=== PATIENT | female | born 1990 | race African-American/Black ===

== ENCOUNTER 2017-05-01 10:45 | Emergency (ER) | payer SELFPAY ==
[~2017-05-01 10:45] MED LIST: ALBU0.63 NEB; ALBU8I INH; CEPH500C3 PO
[2017-05-01 10:47] VITALS: BP 150/83; PULSE 81; RESP 15; TEMP 98.2; O2SAT 99
--- NOTE | 2017-05-01 11:14 | PD ---
Physical Exam Time Seen by Provider: 11:13 Narrative 26yo F c/o Data Data Last Documented VS Vital Signs Date Time Temp Pulse Resp B/P (MAP) Pulse Ox O2 Delivery O2 Flow Rate FiO2 05/01/17 11:44 05/01/17 10:47 98.2 81 15 99 Orders Orders Prochlorperazine Inj (Compazine Inj) (05/01/17 11:30) Kathy Rodrigues May 01, 2017 11:14
--- NOTE | 2017-05-01 11:25 | PD ---
HPI . headache x 1 week on right side of head Chief Complaint: Headache Time Seen by Provider: 11:19 Travel History International Travel<30 days: No Contact w/Intl Traveler<30days: No Traveled to known affect area: No History of Present Illness HPI 26-year-old female here with complaints of right sided headache that she's had for about the past week. The headaches located around the right side of her for head and eyes. It feels like a pulling-type sensation. She's not had any visual changes. Denies any nausea or vomiting. Admits to life being stressful. Denies any chance of . PFSH Past Medical History Asthma: Yes Past Surgical History Cholecystectomy: Yes Social History Alcohol Use: No Tobacco Use: No Substance Use: No Allergies-Medications (Allergen,Severity, Reaction): Coded Allergies: No Known Allergies (Unverified , 04/29/15) Reported Meds & Prescriptions Reported Meds & Active Scripts Active Keflex (Cephalexin Monohydrate) 500 Mg Cap 500 Mg PO BID Reported Accuneb 0.63 mg/3 ml (Albuterol Sulfate) 0.63 Mg/3 Ml Neb 0.63 Mg NEB DIRECTED Ventolin Hfa (Albuterol Sulfate) 8 Gm Aero 1 Puff INH Q4 * SHAKE WELL BEFORE USE * Review of Systems General / Constitutional: No: Fever Eyes: No: Visual changes HENT: No: Headaches Cardiovascular: No: Chest Pain or Discomfort Respiratory: No: Shortness of Breath Gastrointestinal: No: Nausea, Vomiting, Diarrhea, Abdominal Pain Genitourinary: No: Dysuria Musculoskeletal: No: Pain Skin: No Rash Neurologic: Positive: Headache, No: Weakness Psychiatric: No: Depression Endocrine: No: Polydipsia Hematologic/Lymphatic: No: Easy Bruising Physical Exam Narrative GENERAL: AAO x 3, no acute distress, Well-nourished, well-developed patient. SKIN: Warm and dry. No visible rashes or bruising. HEAD: Normocephalic and atraumatic. EYES: No scleral icterus. No injection or drainage. EOM intact, PERRLA ENT: No nasal drainage noted. Mucous membranes pink. Airway patent. NECK: Supple, trachea midline. No JVD. CARDIOVASCULAR: Regular rate and rhythm without murmurs, gallops, or rubs. RESPIRATORY: Breath sounds equal bilaterally. No accessory muscle use. No rhonchi or rales. GASTROINTESTINAL:visual inspection normal EXTREMITIES: No cyanosis or edema. BACK: No obvious deformity. NEURO:grossly intact, PSYCH: AAO x 3, normal affect. Data Data Last Documented VS Vital Signs Date Time Temp Pulse Resp B/P (MAP) Pulse Ox O2 Delivery O2 Flow Rate FiO2 05/01/17 10:47 98.2 81 15 150/83 (105) 99 MDM Medical Decision Making Medical Screen Exam Complete: Yes Emergency Medical Condition: Yes Medical Record Reviewed: Yes Differential Diagnosis cluster headache, tension headache, migraine, less likely SAH Narrative Course 26 yr old female here with what sounds like a cluster headache. Compazine in the ED. Recommend outpatient f/u. Bp mildly elevated. Recommend outpatient follow up. Patient is in between PCP and requesting labs. I advised her that they will need to be done on outpatient basis. I do not suspect any condition warranting labs. I do not believe imaging is indicated. Her neuro exam is unremarkable. Patient verbalized understanding of instructions, questions were answered, and thanked me for their care. I advised them if their condition worsens, please return to the nearest emergency room for further care. Diagnosis Primary Impression: Cluster headache Qualified Codes: G44.009 - Cluster headache syndrome, unspecified, not intractable Patient Instructions: General Instructions Additional Instructions: Please return to emergency department if your symptoms return or worsen. Follow up with your primary care provider. Take medications as prescribed. Try over the counter Tylenol and Motrin as needed. Disposition: 01 DISCHARGE HOME Condition: Stable Katalina Livingston May 01, 2017 11:25
[2017-05-01] MEDS ORDERED: METF500T PO (11:28)
[2017-05-01] MEDS ORDERED: PROCHLORPERAZINE INJ 10 MG/2 ML VIAL IM ONE (11:30)
== END 2017-05-01 11:49 | disposition home or self-care (01) ==
LOC: NEPK 10:45
DX: G44.009 Cluster headache syndrome, unspecified, not intractable (principal); J45.909 Unspecified asthma, uncomplicated; Z79.899 Other long term (current) drug therapy
CPT/HCPCS: 96372; 99283; J0780